=== PATIENT | female | born 1995 | race Caucasian/White ===

== ENCOUNTER → 2025-04-06 10:48 | Outpatient (REF) | payer OTHER, SELFPAY | LOC: OHS 10:48 | PROVIDERS: ATTENDING PHYSICIAN Nurse Practitioner Family | DX: Z23 Encounter for immunization (principal) | CPT/HCPCS: 36415; 86480 ==

== ENCOUNTER → 2025-04-06 15:16 | Outpatient (REF) | payer BC, SELFPAY | LOC: PNTC 15:16 | PROVIDERS: ATTENDING PHYSICIAN Student in an Organized Health Care Education/Training Program | DX: O99.210 Obesity complicating pregnancy, unspecified trimester (principal) | CPT/HCPCS: 76805 ==

== ENCOUNTER → 2025-05-06 16:08 | Outpatient (REF) | payer BC, SELFPAY | LOC: PNTC 16:08 | PROVIDERS: ATTENDING PHYSICIAN Student in an Organized Health Care Education/Training Program | DX: O99.210 Obesity complicating pregnancy, unspecified trimester (principal) | CPT/HCPCS: 76811; 76817 ==

== ENCOUNTER → 2025-06-15 15:50 | Outpatient (REF) | payer BC, SELFPAY | LOC: PNTC 15:50 | PROVIDERS: ATTENDING PHYSICIAN Obstetrics & Gynecology | DX: O99.213 Obesity complicating pregnancy, third trimester (principal) | CPT/HCPCS: 76816 ==

== ENCOUNTER → 2025-07-29 16:34 | Outpatient (REF) | payer BC, SELFPAY | LOC: PNTC 16:34 | PROVIDERS: ATTENDING PHYSICIAN Obstetrics & Gynecology | DX: O99.213 Obesity complicating pregnancy, third trimester (principal) | CPT/HCPCS: 76816 ==

== ENCOUNTER → 2025-08-03 16:16 | Outpatient (REF) | payer BC, SELFPAY | LOC: PNTC 16:16 | PROVIDERS: ATTENDING PHYSICIAN Student in an Organized Health Care Education/Training Program | DX: O99.213 Obesity complicating pregnancy, third trimester (principal) | CPT/HCPCS: 59025; 76815 ==

== ENCOUNTER → 2025-08-10 09:28 | Outpatient (REF) | payer BC, SELFPAY | LOC: PNTC 09:28 | PROVIDERS: ATTENDING PHYSICIAN Student in an Organized Health Care Education/Training Program | DX: O99.212 Obesity complicating pregnancy, second trimester (principal) | CPT/HCPCS: 59025; 76815 ==